=== PATIENT | male | born 1945 | race Caucasian/White ===

== ENCOUNTER 2016-12-06 00:37 | Emergency (ER) | payer OTHER, MEDICARE ==
[2016-12-06] MEDS ORDERED: ACTOS15 M1 PO (00:46)
[2016-12-06] MEDS ORDERED: NORVASC2.5 M1 PO (00:46)
[2016-12-06 00:47] VITALS: BP 168/82
[2016-12-06] MEDS ORDERED: FLOMAX0.4 M1 PO (01:31)
[2016-12-06] MEDS ORDERED: CIPRO500 M1 PO (01:31)
--- NOTE | 2016-12-06 01:31 | ED GI/GU/ABDOMINAL COMPLAINT ---
History of Present Illness General Chief Complaint: Male Genitourinary Problems Stated Complaint: BLOOD IN URINE Source: patient, family, old records Exam Limitations: no limitations Vital Signs & Intake/Output Vital Signs & Intake/Output Vital Signs Date Time Temp Pulse Resp B/P Pulse O2 O2 Flow FiO2 Ox Delivery Rate 12/06 0047 98.9 78 22 168/82 98 Allergies Coded Allergies: Sulfa (Sulfonamide Antibiotics) (HIVES 12/06/16) Reconcile Medications Alprazolam (Xanax) 1 MG TABLET 1 TAB PO TIDPRN anxiety Amlodipine (Norvasc) 2.5 MG TABLET 1 TAB PO DAILY HTN (Reported) Ciprofloxacin HCl (Cipro) 500 MG TABLET 1 TAB PO BID prostatitis Pioglitazone HCl (Actos) 15 MG TABLET 1 TAB PO DAILY UNK (Reported) Tamsulosin HCl (Flomax) 0.4 MG CAP.ER.24H 1 CAP PO DAILY prostatitis Triage Note: PER PT BLOOD IN URINE STARTED YESTERDAY THEN STOPPED, THEN STARTED AGAIN NO PAIN NO FEVERS Triage Nurses Notes Reviewed? yes Onset: Morning Duration: hour(s):, changing over time, continues in ED Timing: recent history Quality/Severity: fullness, moderate Location: suprapubic Radiation: no radiation Activities at Onset: rest Prior Abdominal Problems: similar symptoms Past Sexual History: Unobtainable at this time No Modifying Factors: none HPI: The morning prior to admission patient noted to have bloody urine that has continued over the course the day. He denies fever chills nausea vomiting diarrhea abdominal pain dysuria rash chest pain cough shortness of breath Past History Travel History Traveled to [place] past 21 day No Medical History Any Pertinent Medical History? see below for history Neurological: NONE EENT: NONE Cardiovascular: hypertension Respiratory: NONE Gastrointestinal: NONE Renal: NONE Musculoskeletal: NONE Psychiatric: NONE Endocrine: NONE Surgical History Surgical History: TURP Psychosocial History What is your primary language Kyrgyz Tobacco Use: Current Not Daily Daily Tobacco Use Amount/Type: =< 4 Cigarettes daily Family History Hx Contributory? No Review of Systems Review of Systems Constitutional: Reports: no symptoms. EENTM: Reports: no symptoms. Respiratory: Reports: no symptoms. Cardiovascular: Reports: no symptoms. GI: Reports: no symptoms. Genitourinary: Reports: see HPI, hematuria. Musculoskeletal: Reports: no symptoms. Skin: Reports: no symptoms. Neurological/Psychological: Reports: no symptoms. Hematologic/Endocrine: Reports: no symptoms. Immunologic/Allergic: Reports: no symptoms. All Other Systems: Reviewed and Negative Physical Exam Physical Exam General Appearance: well developed/nourished, alert, awake, anxious, mild distress, obese Head: atraumatic, normal appearance Eyes: Bilateral: normal appearance, PERRL, EOMI, normal inspection. Ears, Nose, Throat, Mouth: hearing grossly normal, moist mucous membrane Neck: normal inspection, supple, full range of motion, normal alignment Respiratory: normal breath sounds, chest non-tender, no respiratory distress, quiet respiration, lungs clear Cardiovascular: regular rate/rhythm, normal peripheral pulses, norml femoral pulses equa Peripheral Pulses: 4+ carotid (R), 4+ carotid (L), 2+ radial (R), 2+ radial (L) Gastrointestinal: normal bowel sounds, soft, non-tender, no organomegaly Male Genitals: normal genitalia Back: normal inspection, normal range of motion Extremities: normal range of motion, no ligament instability Neurologic/Psych: no motor/sensory deficits, awake, alert, oriented x 3, normal gait, normal mood/affect Skin: intact, normal color, warm/dry Core Measures ACS in differential dx? No Severe Sepsis Present: No Septic Shock Present: No Progress Differential Diagnosis: UTI/pyelo Plan of Care: Orders Procedure Date/time Status CULTURE,URINE 12/06 49 Active URINALYSIS 12/06 49 Complete Laboratory Tests 12/06/1649: Urine Color BLDY H, Urine Clarity TURBD H, Urine pH 6.5, Ur Specific [place] 1.015, Urine Protein >=300 H, Urine Ketones 15 H, Urine Nitrite POS H, Urine Bilirubin NEG@ICTO, Urine Urobilinogen 2.0 H, Ur Leukocyte Esterase MOD H, Ur Microscopic SEDIMENT EXAMINED, Urine RBC PACKD H, Urine Hemoglobin LARGE H, Urine Glucose NEG Microbiology 12/06 49 URINE ROUT: Urine Culture - RECD Initial ED EKG: none Departure Departure Time of Disposition: 128 Disposition: HOME OR SELF CARE Condition: Stable Clinical Impression Primary Impression: Prostatitis, acute Referrals: ERIBERTO ZHENG,BENNIE GODOY MD,HORACIO Pereira (PCP/Family) Departure Forms: Customer Survey General Discharge Information Prescriptions: Current Visit Scripts Ciprofloxacin HCl (Cipro) 1 TAB PO BID #30 TAB Tamsulosin HCl (Flomax) 1 CAP PO DAILY #15 CAP Alprazolam (Xanax) 1 TAB PO TIDPRN #20 TAB
[2016-12-06] MEDS ORDERED: XANAX1 M1 PO (01:42)
== END 2016-12-06 01:47 ==
LOC: ERH 00:37
DX: N41.0 Acute prostatitis (principal)
CPT/HCPCS: 81001; 87086